=== PATIENT | female | born 1985 | race Caucasian/White ===

== ENCOUNTER 2016-04-23 23:36 | Emergency (ER) | payer MEDICAID ==
[~2016-04-23] VITALS: Ht 172.7 cm; Wt 119.0 kg
[~2016-04-23 23:36] MED LIST: FOLI-49; PREN1TAB49
[2016-04-24 00:16] VITALS: Ht 172.7 cm; Wt 119.0 kg
--- NOTE | 2016-04-24 04:40 | ERD ---
ER Documentation Chief Complaint Date/Time DATE: 04/24/16 TIME: 04:38 Chief Complaint Flank pain radiating to the front, 10 wks ROS All systems reviewed and are negative except as per history of present illness. Medications Home Meds Active Scripts Acetaminophen* (Tylenol*) 325 Mg Tablet, 2 TAB PO Q6 Y for PAIN AND OR ELEVATED TEMP, #20 TAB Prov:SherlynMaya HOLLOWAY 04/24/16 Reported Medications Folic Acid* (Folic Acid*) 1 Mg Tablet 10/05/10 Vits W-Ca,Fe,Fa(<1MG) () 1 Tab Tablet 10/05/10 Allergies Allergies: Coded Allergies: No Known Allergy (Verified Allergy, 10/05/10) PMhx/Soc History of Surgery: No (NO MEDICAL CONDITIONS OR SURGICAL HISTORY) Hx Miscellaneous Medical Probl: Yes (DENIES MEDICAL PROBLEMS) Hx Alcohol Use: No Hx Substance Use: No Hx Tobacco Use: No Smoking Status: Never smoker Physical Exam Vitals Vital Signs Date Time Temp Pulse Resp B/P Pulse Ox O2 Delivery O2 Flow Rate FiO2 04/24/16 00:16 98.3 88 18 109/69 99 Physical Exam GENERAL: Non-toxic. No apparent signs of distress. No slurred speech. No facial asymmetry. HEENT: Atraumatic. Tenderness to palpation of frontal and maxillary sinus. bilateral eyes are PERRL EOM intact. Normal conjunctiva, no injection. No eyelid or lower eyelid swelling noted. Photophobia. Ears: Normal tympanic membrane, no erythema or bulging. No ear canal swelling. No ear discharge. Nose : no nasal discharge. Throat: Oropharynx normal. Tongue pink and moist. No tonsillar swelling or tonsillar exudates. No lymphadenopathy. LUNGS: Clear to auscultation. No accessory muscle use. No wheezing, no crackles. No signs or symptoms of respiratory distress. HEART: Regular rate and rhythm. No murmurs, clicks, rubs or gallops. BACK: No midline tenderness. EXTREMITIES: No peripheral cyanosis or edema. No focal pain or notable trauma. Full range of motion. Sensation intact. good capillary refill. NEURO: The patient moves all 4 extremities with 5/5 strength. Cranial nerves are grossly intact. Normal mental status for age. Good muscle tone. SKIN: There is no apparent rash, petechiae, erythema or swelling. Good skin turgor. Result Diagram: 04/24/16 0420 04/24/16 0420 Results 24 hrs Laboratory Tests Test 04/24/16 04:00 04/24/16 04:20 Urine Bilirubin NEGATIVE Urine Clarity CLEAR Urine Color LT. YELLOW Urine Glucose NEGATIVE% Urine Hemoglobin NEGATIVE Urine Ketones NEGATIVE Urine Leukocyte Esterase NEGATIVE Urine Nitrite NEGATIVE Urine Specific [place] <=1.005 Urine Total Protein NEGATIVE Urine Urobilinogen 0.2 E.U./dL Urine pH 6.0 Anion Gap 17 Basophils # 0.010^3/ul Basophils % 0.3% Beta HCG, Quantitative 822237.0mIU/ml Blood Urea Nitrogen 9mg/dl Calcium Level 9.6mg/dl Carbon Dioxide Level 25mmol/L Chloride Level 102mmol/L Creatinine 0.76mg/dl Eosinophils # 0.010^3/ul Eosinophils % 0.1% Glucose Level 99mg/dl Hematocrit 36.0% Hemoglobin 11.7g/dl Lymphocytes # 2.610^3/ul Lymphocytes % 18.9% Mean Corpuscular Hemoglobin 29.4pg Mean Corpuscular Hemoglobin Concent 32.5g/dl Mean Corpuscular Volume 90.5fl Mean Platelet Volume 10.1fl Monocytes # 0.610^3/ul Monocytes % 4.6% Neutrophils # 10.510^3/ul Neutrophils % 75.7% Nucleated Red Blood Cells # 0.010^3/ul Nucleated Red Blood Cells % 0.0/100WBC Platelet Count 85612^3/UL Potassium Level 3.9mmol/L Red Blood Count 3.9810^6/ul Red Cell Distribution Width 13.6% Sodium Level 140mmol/L White Blood Count 13.810^3/ul Procedures/MDM Patient presented with suprapubic pain initially, however states that the pain intermittently radiates into her lower back as well. She has tenderness to palpation of the suprapubic area, and right and left adnexa. Negative Kay sign. No tenderness over McBurney's point or rebound tenderness. I explained that we would order basic lab work along with beta hCG and a pelvic ultrasound. Awaiting results prior to further management. CBC: BMP: UA: Beta HCG: within appropriate range for dates I have low suspicion for ectopic , pyelonephritis, appendicitis, cholecystitis, pancreatitis, bowel obstruction, PID, and sepsis. Patient is stable for discharge and outpatient management. Advised to follow- up with PCP or [facility] in 1-2 days. Maya Plata PA-C Apr 24, 2016 04:40
[2016-04-24 04:48] LABS: ADD SCAN DIFF NO
[2016-04-24 04:52] LABS: BASOPHILS % 0.3 % (0.0-2.0); EOSINOPHILS % 0.1 % (0.0-7.0); HEMOGLOBIN 11.7 g/dl (12.0-16.0); LYMPHOCYTES # 2.6 10^3/ul (0.8-2.9); LYMPHOCYTES % 18.9 % (15.0-51.0); MEAN CORPUSCULAR HEMOGLOBIN 29.4 pg (29.0-33.0); MEAN CORPUSCULAR HGB CONC 32.5 g/dl (32.0-37.0); MEAN CORPUSCULAR VOLUME 90.5 fl (82.0-101.0); MEAN PLATELET VOLUME 10.1 fl (7.4-10.4); MONOCYTE # 0.6 10^3/ul (0.3-0.9); MONOCYTES % 4.6 % (0.0-11.0); NEUTROPHIL # 10.5 10^3/ul (1.6-7.5); NEUTROPHILS % 75.7 % (39.0-77.0); PLATELET COUNT 299 10^3/UL (140-415); RED BLOOD COUNT 3.98 10^6/ul (4.20-5.40); RED CELL DISTRIBUTION WIDTH 13.6 % (11.5-14.5); WHITE BLOOD COUNT 13.8 10^3/ul (4.8-10.8)
[2016-04-24 04:53] LABS: ADD UMIC NO; URINE BILIRUBIN (Dip) NEGATIVE (NEGATIVE); URINE BLOOD (Dip) NEGATIVE (NEGATIVE); URINE COLOR LT. YELLOW (YELLOW); URINE GLUCOSE (Dip) NEGATIVE (NEGATIVE); URINE KETONES (Dip) NEGATIVE (NEGATIVE); URINE LEUKOCYTE ESTERASE (Dip) NEGATIVE (NEGATIVE); URINE NITRITE (Dip) NEGATIVE (NEGATIVE); URINE TOTAL PROTEIN (Dip) NEGATIVE (NEGATIVE); URINE UROBILINOGEN (Dip) 0.2 E.U./dL (0.1-1.0)
[2016-04-24 05:08] LABS: POTASSIUM 3.9 mmol/L (3.5-5.1)
[2016-04-24 05:11] LABS: CREATININE 0.76 mg/dl (0.44-1.00)
[2016-04-24 05:12] LABS: CALCIUM 9.6 mg/dl (8.4-10.2)
--- NOTE | 2016-04-24 06:37 | RADRPT ---
PROCEDURE: ULTRASOUND OBSTETRICAL CLINICAL INDICATION: 30-year-old female with pelvic pain. TECHNIQUE: Multiple sonographic images of the pelvis were obtained. The images were reviewed on a PACS workstation. COMPARISON: None. FINDINGS: There is a single intrauterine gestation. There is a subchorionic hemorrhage present measuring appro ximately 10 x 9 mm. The mean sac diameter is 4.14 cm. There is a pole present with a crown-ru mp length of 3.38 cm. This yields an estimated gestational age of 10 weeks and 0 days. The estimated date of delivery is November 20, 2016. Cardiac activity is present at 168 beats per minute. There i s no evidence for free fluid. The right ovary has a normal echotexture and measures 3.1 x 1.6 x 2.1 cm. There is flow within the right ovary. The left ovary was not able to be visualized. No adnexa l masses are noted. IMPRESSION: 1. Single viable intrauterine gestation of approximately 10 weeks 0 days with small subchorionic he morrhage. The estimated date of delivery is November 20, 2016. 2. The left ovary was not visualized. .Khang Roe MD, MD Date Time Electronically viewed and signed by .Khang Reo MD, on 04/24/2016 06:36 .M/
[2016-04-24] MEDS ORDERED: ACET325T33 PO (06:42)
== END 2016-04-24 07:40 | disposition home or self-care (01) ==
LOC: FTE 23:36
DX: O26.891 Other specified pregnancy related conditions, first trimester (principal); R10.30 Lower abdominal pain, unspecified; R10.2 Pelvic and perineal pain
CPT/HCPCS: 36415; 76801; 76817; 80048; 81003; 84702; 85025